=== PATIENT | male | born 1965 | race American Indian/Alaskan Native ===

== ENCOUNTER 2018-08-30 09:45 | Emergency (ER) | payer OTHER ==
[2018-08-30] MEDS ORDERED: PEPCID IV ONE (10:07)
[2018-08-30] MEDS ORDERED: NACL 0.9% 1000 ML 1,000 ML IV ONE ×2 (10:07→12:51)
[2018-08-30] MEDS ORDERED: MORPHINE IV ONE (10:07)
[2018-08-30 10:08] LABS: Basophils % (Auto) 0.2 % (0.0-1.8); Eosinophils % (Auto) 0.1 % (0.0-4.3); Hemoglobin 14.8 gm/dl (11.8-15.2); Lymphocytes # (Auto) 1.5 K/mm3 (1.2-5.4); Lymphocytes % (Auto) 7.9 % (13.4-35.0); Mean Corpuscular HGB Conc 34 % (32-34); Mean Corpuscular Volume 91 fl (84-94); Monocytes # (Auto) 1.7 K/mm3 (0.0-0.8); Monocytes % (Auto) 8.7 % (0.0-7.3); Platelet Count 251 K/mm3 (140-440); Red Blood Count 4.81 M/mm3 (3.65-5.03); Red Cell Distribution Width 13.2 % (13.2-15.2)
[2018-08-30] MEDS ORDERED: ZOFRAN IV ONE (10:09)
--- NOTE | 2018-08-30 10:14 | Emergency Department Report ---
ED General Adult HPI - General Chief complaint: Abdominal Pain Stated complaint: ABD PAIN Time Seen by Provider: 08/30/18 10:04 Source: patient Mode of arrival: Ambulatory Limitations: No Limitations - History of Present Illness Initial comments: Patient is a 52-year-old male no significant past medical history who presents with severe epigastric abdominal pain it's been going on for last 2 days. He's also been having nausea and vomiting for last 2 days. Patient states that the pain was sudden in his epigastric area that does not radiate nothing makes it better and nothing makes it worse. The pain is constant patient denies having any chest pain or any fever or chills. - Related Data Allergies Allergy/AdvReac Type Severity Reaction Status Date / Time No Known Allergies Allergy Unverified 08/30/18 09:47 ED Review of Systems ROS: Stated complaint: ABD PAIN Other details as noted in HPI Constitutional: denies: chills, fever Eyes: denies: eye pain, eye discharge, vision change ENT: denies: ear pain, throat pain Respiratory: denies: cough, shortness of breath, wheezing Cardiovascular: denies: chest pain, palpitations Endocrine: no symptoms reported Gastrointestinal: abdominal pain, nausea, vomiting. denies: diarrhea Genitourinary: denies: urgency, dysuria Musculoskeletal: denies: back pain, joint swelling, arthralgia Skin: denies: rash, lesions Neurological: denies: headache, weakness, paresthesias Psychiatric: denies: anxiety, depression Hematological/Lymphatic: denies: easy bleeding, easy bruising ED Past Medical Hx - Past Medical History Previous Medical History?: No - Surgical History Past Surgical History?: No - Social History Smoking Status: Former Smoker Substance Use Type: Alcohol ED Physical Exam - General Limitations: No Limitations General appearance: alert, in no apparent distress - Head Head exam: Present: atraumatic, normocephalic - Eye Eye exam: Present: normal appearance - ENT ENT exam: Present: mucous membranes moist - Neck Neck exam: Present: normal inspection - Respiratory Respiratory exam: Present: normal lung sounds bilaterally. Absent: respiratory distress - Cardiovascular Cardiovascular Exam: Present: regular rate, normal rhythm. Absent: systolic murmur, diastolic murmur, rubs, gallop - GI/Abdominal GI/Abdominal exam: Present: soft, tenderness, normal bowel sounds - Rectal Rectal exam: Present: deferred - Extremities Exam Extremities exam: Present: normal inspection - Back Exam Back exam: Present: normal inspection - Neurological Exam Neurological exam: Present: alert, oriented X3 - Psychiatric Psychiatric exam: Present: normal affect, normal mood - Skin Skin exam: Present: warm, dry, intact, normal color. Absent: rash ED Course Vital Signs 08/30/18 08/30/18 09:47 12:32 Temperature 98.1 F Pulse Rate 103 H 73 Respiratory 20 16 Rate Blood Pressure 145/92 Blood Pressure 120/75 [Left] O2 Sat by Pulse 97 97 Oximetry - Consultations Consultation #1: 08/30/18 13:[address] Herman for transfer for patient's 6mm kidney stone. ED Medical Decision Making - Lab Data Result diagrams: 08/30/18 09:54 08/30/18 09:54 Lab Results 08/30/18 08/30/18 08/30/18 Range/Units 09:54 09:54 12:28 WBC 19.0 H (4.5-11.0) K/mm3 RBC 4.81 (3.65-5.03) M/mm3 Hgb 14.8 (11.8-15.2) gm/dl Hct 44.0 (35.5-45.6) % MCV 91 (84-94) fl MCH 31 (28-32) pg MCHC 34 (32-34) % RDW 13.2 (13.2-15.2) % Plt Count 251 (140-440) K/mm3 Lymph % (Auto) 7.9 L (13.4-35.0) % [place] % (Auto) 8.7 H (0.0-7.3) % Eos % (Auto) 0.1 (0.0-4.3) % Baso % (Auto) 0.2 (0.0-1.8) % Lymph # 1.5 (1.2-5.4) K/mm3 Crosby # 1.7 H (0.0-0.8) K/mm3 Eos # 0.0 (0.0-0.4) K/mm3 Baso # 0.0 (0.0-0.1) K/mm3 Seg Neutrophils % 83.1 H (40.0-70.0) % Seg Neutrophils # 15.8 H (1.8-7.7) K/mm3 Sodium 139 (137-145) mmol/L Potassium 4.1 (3.6-5.0) mmol/L Chloride 99.9 (98-107) mmol/L Carbon Dioxide 22 (22-30) mmol/L Anion Gap 21 mmol/L BUN 26 H (9-20) mg/dL Creatinine 1.9 H (0.8-1.5) mg/dL Estimated GFR 38 ml/min BUN/Creatinine Ratio 14 % Glucose 128 H (75-100) mg/dL Calcium 9.5 (8.4-10.2) mg/dL Total Bilirubin 0.90 (0.1-1.2) mg/dL AST 24 (5-40) units/L ALT 28 (7-56) units/L Alkaline Phosphatase 68 (35-129) units/L Total Protein 8.2 (6.3-8.2) g/dL Albumin 4.5 (3.9-5) g/dL Albumin/Globulin Ratio 1.2 % Lipase 18 (13-60) units/L Urine Color Yellow (Yellow) Urine Turbidity Clear (Clear) Urine pH 6.0 (5.0-7.0) Ur Specific [place] 1.016 (1.003-1.030) Urine Protein <15 mg/dl (Negative) mg/dL Urine Glucose (UA) Neg (Negative) mg/dL Urine Ketones 20 (Negative) mg/dL Urine Blood Sm (Negative) Urine Nitrite Neg (Negative) Urine Bilirubin Neg (Negative) Urine Urobilinogen < 2.0 (<2.0) mg/dL Ur Leukocyte Esterase Neg (Negative) Urine WBC (Auto) < 1.0 (0.0-6.0) /HPF Urine RBC (Auto) 2.0 (0.0-6.0) /HPF U Epithel Cells (Auto) < 1.0 (0-13.0) /HPF Urine Bacteria (Auto) 1+ (Negative) /HPF Urine Mucus Few /HPF - Radiology Data Radiology results: report reviewed, image reviewed CT abdomen and pelvis: Shows left kidney stone 6 mm with mild hydronephrosis of the left kidney. - Medical Decision Making Cdx: Kidney stone ddx: Bowel perforation, appendicitis, diverticulitis I will get ct scan, cbc, bmp, lipase, IV pain medication and IV antiemetics DT scan shows 6 mm kidney stone patient's pain is not controlled with IV and oral antiemetics I will transfer patient to [facility] due to no urologist being home economist for [facility]. Discussed with patient they agree with plan for transfer. Critical care attestation.: If time is entered above; I have spent that time in minutes in the direct care of this critically ill patient, excluding procedure time. ED Disposition Clinical Impression: Left renal stone, Left flank pain Leukocytosis Qualifiers: Leukocytosis type: unspecified Qualified Code(s): D72.829 - Elevated white blood cell count, unspecified Disposition: DC/TX-70 ANOTHER TYPE HLTHCARE Is pt being admited?: No Does the pt Need Aspirin: No Condition: Stable Referrals: RICARDO SHEFFIELD MD [Primary Care Provider] - 3-5 Days
[2018-08-30 10:30] LABS: Albumin 4.5 g/dL (3.9-5); Calcium 9.5 mg/dL (8.4-10.2)
[2018-08-30] MEDS ORDERED: DILAUDID IV ONE ×3 (12:13→13:30)
--- NOTE | 2018-08-30 12:18 | Cat Scan Report ---
CT ABDOMEN AND PELVIS WITHOUT CONTRAST HISTORY: Acute severe epigastric pain. COMPARISON: None. TECHNIQUE: CT images of the abdomen and pelvis were obtained without administration of intravenous co ntrast. All CT scans at this location are performed using CT dose reduction for ALARA by means of au tomated exposure control. FINDINGS: Lungs/bones: There is minimal bibasilar atelectasis. No acute osseous abnormality or significant deg enerative change identified. Abdomen/pelvis: The liver, gallbladder, spleen, pancreas, adrenals, and proximal GI tract appear unr emarkable. There is a 6 mm stone in the proximal left ureter with mild left-sided hydronephrosis and perinephric stranding the right kidney and collecting system appear normal. The prostate is slightly enlarged and indents the bladder base. The bladder otherwise appears unremar kable. No pelvic free fluid and no acute colonic abnormality identified. The appendix and terminal il eum appear normal. IMPRESSION: 1. 6 mm proximal left ureteral stone with mild hydronephrosis. Signer Name: Erik Parker MD Signed: 08/30/2018 12:14 PM Workstation Name: [id number]
[2018-08-30 12:42] LABS: Bacteria,Urine 1+ /HPF (Negative); Bilirubin,Urine NEG (Negative); Blood,Urine SM (Negative); Color,Urine Yellow (Yellow); Mucus,Urine FEW /HPF; Protein,Urine <15 mg/dL mg/dL (Negative); Urobilinogen,Urine < 2.0 mg/dL (<2.0); WBC,Urine < 1.0 /HPF (0.0-6.0)
[2018-08-30] MEDS ORDERED: TORADOL IV ONE (12:51)
[2018-08-30] MEDS ORDERED: PERCOCET 5/325 PO ONE (13:30)
[2018-08-30] MEDS ORDERED: ROCEPHIN 1,000 MG in NACL 0.9% 50 ML IV NR (14:00)
[2018-08-30] MEDS ORDERED: ROCEPHIN/NS 1 GM/50 ML 1 GM/50 ML BAG IV NR (14:00)
[2018-08-30 14:47] VITALS: BP 116/71
== END 2018-08-30 14:57 | disposition other institution (70) ==
LOC: ED 09:45
DX: N20.0 Calculus of kidney (principal); D72.829 Elevated white blood cell count, unspecified
CPT/HCPCS: 36415; 74176; 80053; 81001; 83690; 85025; 96361; 96374; 96375; 96376; 99284; J0696; J1170; J1885; J2270; J2405; J7030